=== PATIENT | male | born 1965 | race Caucasian/White ===

== ENCOUNTER → 2019-06-02 | Outpatient (CLI) | payer OTHER ==
[~2019-06-02] MED LIST: AMLO5 PO; ERYT.5TO RIGHTEYE; FLUT110OIA INH; Norco 5-325 Ta1 EACH PO; OMEP20ER PO
== END | disposition home or self-care (01) ==
LOC: LAB SHORT 08:18 → PLD 08:18
DX: D23.72 Other benign neoplasm of skin of left lower limb, including hip (principal)
CPT/HCPCS: 88305